=== PATIENT | female | born 1950 | race Caucasian/White ===

== ENCOUNTER 2023-10-22 09:40 | Day surgery (SDC) | payer MEDICARE ==
[2023-10-22] MEDS ORDERED: BUPIVACAINE 0.5% VIAL IJ ONE (09:41)
[2023-10-22] MEDS ORDERED: Depo-Medrol 40 MG/ML IM ONE (09:41)
[2023-10-22] MEDS ORDERED: Lactated Ringers 1,000 ML IV ONE (11:40)
[2023-10-22] MEDS ORDERED: DIPRIVAN 200 MG/20 ML IV ONE (11:41)
--- NOTE | 2023-10-22 13:13 | XRAY ---
Indication: Bilateral L4-S1 facet injection. Intraoperative fluoroscopy provided for 60 seconds. 4 lateral digital spot image submitted for interpretation demonstrates posterior needle tips projecting over left and right L4-S1 facets. Correlate with intraoperative findings/report.
--- NOTE | 2023-10-22 13:18 | XRAY ---
60 seconds of fluoroscopy was used in surgery for a bilateral L4-S1 intra-articular facet injection.
== END 2023-10-22 12:25 | disposition home or self-care (01) ==
LOC: SDC-PAIN 09:40
PROVIDERS: ATTEND Psychiatry & Neurology Pain Medicine
DX: M47.816 Spondylosis without myelopathy or radiculopathy, lumbar region (principal); E11.9 Type 2 diabetes mellitus without complications
CPT/HCPCS: 64493; 64494; 72020; 77002; 82947; J2704; Q9966

== ENCOUNTER 2023-11-13 08:05 | Day surgery (SDC) | payer MEDICARE ==
[2023-11-13] MEDS ORDERED: BUPIVACAINE 0.5% VIAL IJ ONE (08:06)
[2023-11-13] MEDS ORDERED: Depo-Medrol 40 MG/ML IM ONE (08:06)
[2023-11-13] MEDS ORDERED: DIPRIVAN 200 MG/20 ML IV ONE (09:58)
[2023-11-13] MEDS ORDERED: Lactated Ringers 1,000 ML IV ONE (10:30)
--- NOTE | 2023-11-13 10:31 | XRAY ---
Indication: Bilateral SI joint injection YANELIS. Intraoperative fluoroscopy provided for 18 seconds. 4 digital spot image submitted for interpretation demonstrates posterior needle tips projecting over the expected left and right SI joints. Small amount of contrast injected for needle tip placement. Correlate with intraoperative findings/report.
--- NOTE | 2023-11-13 10:32 | XRAY ---
18 seconds of fluoroscopy was used in surgery for a bilateral sacroiliac joint injection.
== END 2023-11-13 10:35 | disposition home or self-care (01) ==
LOC: SDC-PAIN 08:05
PROVIDERS: ATTEND Psychiatry & Neurology Pain Medicine
DX: M46.1 Sacroiliitis, not elsewhere classified (principal); E11.9 Type 2 diabetes mellitus without complications
CPT/HCPCS: 27096; 72202; 77002; 82947; 99100; J2704; Q9966; G0260